=== PATIENT | male | born 1940 | race Caucasian/White ===

== ENCOUNTER → 2024-09-01 | Outpatient (CLI) | payer MEDICARE, OTHER, SELFPAY ==
--- NOTE | 2024-09-01 11:14 | MRI_ITS ---
STUDY: MRI LUMBAR SPINE WITHOUT CONTRAST REASON FOR EXAM: Male, 84 years old. RT SIDED BACK PAIN, SPINAL STENOSIS, rt sciatica TECHNIQUE: Standardized fat and water weighted pulse sequences were obtained in the sagittal and axial planes. COMPARISON: None FINDINGS: T12-L1: Mild anterior endplate spurring. Normal disc height, desiccation and minimal annular bulge. Normal bilateral facet joints. Normal central canal and bilateral lateral recesses. Normal bilateral intervertebral neural foramina. Normal lumbar lordosis. There is no substantial scoliosis. Normal conus medullaris that terminates at T12-L1 L1-2: Mild anterior endplate spurring. Normal disc height, desiccation and minimal annular bulge. Normal bilateral facet joints. Mild narrowing of the central canal exaggerated by posterior epidural fat pad. Normal bilateral lateral recesses. Normal bilateral intervertebral neural foramina. L2-3: Anterior endplate spurring and degenerative endplate changes. Narrowed disc space with minimal bulging disc osteophyte complex with left foraminal osteophyte protrusion and small right foraminal disc protrusion. Mild facet arthropathy and thickening of ligamenta flava. Normal central canal and bilateral lateral recesses. Severe bilateral neural foraminal stenosis L3-4: Grade 1 spondylolisthesis Normal endplates. Normal disc height, desiccation and minimal bulging disc osteophyte complex with tiny right foraminal disc protrusion. Facet arthropathy and thickening of ligamenta flava Normal central canal and bilateral lateral recesses. Moderate left neural foraminal encroachment and severe narrowing on the right. L4-5: Normal endplates. Narrowed disc space with normal disc hydration and tiny right foraminal osteophyte protrusion. Mild facet arthropathy. Normal central canal and bilateral lateral recesses. Severe right neural foraminal stenosis secondary to bony hypertrophy L5-S1: Normal endplates. Normal disc height, hydration and morphology. Normal bilateral facet joints. Normal central canal and bilateral lateral recesses. Normal bilateral intervertebral neural foramina. Normal visualized sacral ala. Normal visualized paraspinous soft tissue structures. MRI/Spine Lumbar (Routine) IMPRESSION: No evidence for acute fracture or other significant bone pathology Moderate spondylosis and multilevel spinal stenosis secondary to disc disease and bony hypertrophy. Findings as above Electronically Signed: Barrington Avendano MD at 16:52 EDT ,
[2024-09-01 11:40] VITALS: BP 139/84; PULSE 100; RESP 18; O2SAT 98
[2024-09-01 11:55] VITALS: BP 118/60; PULSE 100; RESP 18; O2SAT 96
[2024-09-01 12:07] VITALS: BP 114/79; PULSE 100; O2SAT 97
== END | disposition home or self-care (01) ==
LOC: MRI 11:00
PROVIDERS: PCP Family Medicine; Referring Provider Family Medicine; Visit Provider Family Medicine
DX: M48.061 Spinal stenosis, lumbar region without neurogenic claudication (principal); M51.360 Other intervertebral disc degeneration, lumbar region with discogenic back pain only; M54.41 Lumbago with sciatica, right side; G89.29 Other chronic pain
CPT/HCPCS: 72148

== ENCOUNTER 2025-05-19 09:00 | Outpatient (RCR) | payer MEDICARE, OTHER, SELFPAY ==
--- NOTE | 2025-03-16 14:06 | HP.PTEVAL ---
Patient's Visit Information Visit Information Visit Information: MCKENNA GRANT is a 84 year old M referred to Physical Therapy by Dr. Gab Murphy MD with a diagnosis of PD, gait disorder, back pain. Date of Evaluation: 03/16/25 Physical Therapist: XAVIER Butler Visit Plan Frequency: 2x /Week Duration: 3 Months Plan: 2X/ week for 12 weeks for stretching of the R piriformis, trunk stretching (rotation), trail of repeated flexion in sitting, neutral core stability, core stability, postural exercises, balance, dual tasking, gait training with HEP HEP: wall posture, supine wand flexion, seated piriformis stretch Subjective Subjective: Pt was diagnosed with PD and showed up on a BINA scan 12-31-2014. He met with his neurologist yesterday (Margy). Dr Ji said clinically she would dx him with essential tremors. He takes PD meds 3X/day. He reports that his spine and LB is his issue. His PD has not changed in 4 years. He has LB issues and had an MRI done and has had injections and has several things being done in his spine. MRI showed moderate spondylosis and spinal stenosis. The first injection helped but did not last too long. The second injection did help. He does a series of exercise that he does 6 days a week (SKC, LTR, supine piriformis, stretcher machine Hamstring, SLR, Bridges, supine hip adduction with ball). He can not hardly at all and used to walk miles and miles. When he walks he leans to the L and then his R sided buttock starts to hurt. Now he can only walk 1 lap and the sits and then can walk another lap. The most he can walk is 2 3/4 miles but he usually has trouble getting a mile in due to pain. He was given a muscle relaxer and he was too sleepy. His PCP sent him here for PT because he can not walk like he used. He has no freezing episodes, no trouble going up and down stairs (uses a railing), no trouble getting up out of a chair. He wakes up and very stiff and sore in the morning. His back is so sore and trouble rolling over in bed. He sleeps on the L side most of the time. He has no pain or weakness in his legs. He is not getting the exercise that he is used too and can not be active like he used too. Pain back pain: Pain Intensity (Out of 10): 0 Objective Objective: Gait: Walks with shorter strides, SB to the L, no trunk rotation, flexed trunk Pt is able to heel and toe raise but weakness is present Trunk AROM: SB R to neutral, SB L 50% normal ROM, Rot B 50% normal ROM, Ext to neutral (substitutes at the knees (bent)), flexion 50% RF in Sitting X 10 at 10 second hold.... LE MMT: B hip flex, B knee ext, B knee flex all 5/5 Sit to stand: able to get up without UE support on first attempt Hard to lay in supine due to back pain.. better with knees bent. Had increase thoracic/lumbar stretch with supine wand flexion R piriformis is tight compared to the L. LTR is tighter on the R too. Hip IR is tighter on the R as well. FGA 18 Posture: SB to the L, flexed trunk and FW head Balance/Special Test Scores Functional Gait Assessment Score: 18 % Disability: 40.0000 Lower Extremity Functional Score: 31 Goals Goal 1:: I HEP Goal Time Frame: 8-12 Weeks Goal 2:: Increase overall posture (at time of eval more SB to the L and flexed trunk, rounded shoulders Goal Time Frame: 8-12 Weeks Goal 3:: Increase ability to walk longer distances without having R hip pain (able to walk 1 lap around the track now and has to sit down) Goal Time Frame: 8-12 Weeks Goal 4:: Increase flexibility of R piriformis and R hip Goal Time Frame: 8-12 Weeks Goal 5:: Increase balance (FGA 18 on eval) Goal Time Frame: 8-12 Weeks Rehabilitation Potential Rehabilitation Potential: Good Anticipated Interventions Patient/Client Instruction: Educate patient on: Condition and Plan of Care For the Purpose of:: To decrease pain, To increase ROM, To improve nutrient delivery to tissue, To improve muscle performance and motor function, To improve ability to perform ADL's, To increase tolerance to activity/condition/position, To improve performance and independence with ADL's, To decrease level of supervision to perform tasks, To improve ability of physical actions for home/community/work/leisure, To improve gait and locomotor functions, To improve health of tissue, To decrease soft tissue restriction, To increase flexibility/ROM, To improve endurance, To improve balance and To improve safety with gait Therapeutic Exercise to Include: Strength training, Endurance training, Balance training, Body mechanics, Postural training, Flexibilty training, Gait and locomotor training, Neuromotor development, Passive ROM, Active ROM, Dynamic Lumbar Stabilization and Scapular Strength/Stabilization For the Purpose of:: To decrease pain, To increase ROM, To improve nutrient delivery to tissue, To improve muscle performance and motor function, To improve ability to perform ADL's, To increase tolerance to activity/condition/position, To improve performance and independence with ADL's, To decrease level of supervision to perform tasks, To improve ability of physical actions for home/community/work/leisure, To improve gait and locomotor functions, To improve health of tissue, To decrease soft tissue restriction, To increase flexibility/ROM, To improve endurance, To improve balance and To improve safety with gait Functional Training to Include: Gait training For the Purpose of:: To improve gait and locomotor functions and To improve safety with gait Manual Therapy Techniques to Include: Passive ROM and Soft tissue mobilization For the Purpose of:: To decrease pain, To decrease swelling/inflammation, To increase ROM, To improve nutrient delivery to tissue, To improve muscle performance and motor function, To decrease level of supervision to perform tasks, To improve ability of physical actions for home/community/work/leisure, To improve gait and locomotor functions, To improve health of tissue, To decrease soft tissue restriction, To increase flexibility/ROM, To improve endurance, To improve balance and To improve safety with gait Text: Thank you for the opportunity to evaluate your patient. For Medicare and Medicare HMO plans, please review the plan of care and approve it. It will need to be FAXED BACK to us at [phone] for Medicare purposes. For Medicare only, by signing this I certify the plan of care. Please let me know if there are questions or concerns regarding this plan of care. Physician Signature: Date:
--- NOTE | 2025-05-19 17:19 | HP.PTDCSUM ---
Discharge Summary D/C summary: It has been my pleasure to treat MCKENNA GRANT referred by Dr. Gab Murphy MD, with the diagnosis of PD, gait disorder, back pain for a total of 17 visit(s). Discharge Date: Please see the following information for a summary of their discharge status. 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 He is enjoying it. He is back to golfing and his score is decent. His back is better as long as he keeps doing his exercises. He still has tightness when he stretches. Pt will be joining in the PD class. Pain back pain: Pain Intensity (Out of 10): 0 R shoulder: Pain Intensity (Out of 10): 0 Overall Improvement % Improvement: 80 Objective Objective/Function: FGA 22 Pt has some in crease in flexibility in Piriformis Goals Goal 1:: I HEP Goal Progress: Goal Met Goal 2:: Increase overall posture (at time of eval more SB to the L and flexed trunk, rounded shoulders Goal Progress: Goal Met Goal 3:: Increase ability to walk longer distances without having R hip pain (able to walk 1 lap around the track now and has to sit down) Goal Progress: Goal Met Goal 4:: Increase flexibility of R piriformis and R hip Goal Progress: Goal Met Goal 5:: Increase balance (FGA 18 on eval) Goal Progress: Goal Met Plan Plan: DC PT to PD class and indep HEP D/C Information d/c sentence: If there are questions or concerns regarding this patient's physical therapy, please feel free to call me at [phone]. Thank you for the referral of this patient. Sincerely, Sandra Fishman, MPT Balance/Gait/Functional tests Balance/Special Test Scores Functional Gait Assessment Score: 22 % Disability: 26.6700 Lower Extremity Functional Score: 40 Improvement % Improvement: 80
== END 2025-05-19 19:00 | disposition home or self-care (01) ==
LOC: PT 09:00
PROVIDERS: PCP Family Medicine; Referring Provider Family Medicine; Visit Provider Family Medicine
DX: G20.A1 Parkinson's disease without dyskinesia, without mention of fluctuations (principal); R26.9 Unspecified abnormalities of gait and mobility
CPT/HCPCS: 97110; 97140; 97162; 97530